=== PATIENT | female | born 1940 | race Caucasian/White ===

== ENCOUNTER → 2017-12-26 | Outpatient (CLI) | payer OTHER | END | disposition home or self-care (01) | LOC: KCIC DEXA 13:40 | DX: Z13.820 Encounter for screening for osteoporosis (principal); E11.9 Type 2 diabetes mellitus without complications; M85.88 Other specified disorders of bone density and structure, other site; Z78.0 Asymptomatic menopausal state | CPT/HCPCS: 77080 ==

== ENCOUNTER 2019-07-11 15:36 | Inpatient (IN) | payer MEDICARE, OTHER ==
[~2019-07-11] VITALS: Ht 170.2 cm; Wt 124.9 kg
[2019-07-11 15:50] LABS: BILIRUBIN,URINE NEGATIVE (NEG); COLOR,URINE YELLOW; NITRITE,URINE NEGATIVE (NEG); PH,URINE 6.5; PROTEIN,URINE 30 mg/dL (NEG-TRACE); UROBILINOGEN,URINE 0.2 mg/dL (0.2 mg/dL)
[2019-07-11 15:54] LABS: CLARITY,URINE CLEAR
[2019-07-11 15:55] LABS: BACTERIA,URINE FEW /HPF (0-FEW); RBC,URINE 0 /HPF (0-2); SQUAMOUS EPITHELIAL CELL,UR MOD /LPF; WBC,URINE OCC /HPF (0-4)
--- NOTE | 2019-07-11 15:58 | PHYS DOC ---
Adult General Chief Complaint Chief Complaint: MULTIPLE COMPLAINTS HPI HPI Patient is a 79 year old female who presents with shortness of breath has been ongoing for several months. The patient states that today she started developing incontinence, urinary frequency. The patient states she's had a the bathroom numerous times and continues to urinate on herself. Patient also has been having chest pain is mid-sternal nature, and headache. The patient denies any trauma. Review of Systems Review of Systems Constitutional: Denies fever or chills [] Eyes: Denies change in visual acuity, redness, or eye pain [] HENT: Denies nasal congestion or sore throat [] Respiratory: Reports shortness of breath [] Cardiovascular: No additional information not addressed in HPI [] GI: Denies abdominal pain, nausea, vomiting, bloody stools or diarrhea [] : Reports frequency and incontinence. Musculoskeletal: Denies back pain or joint pain [] Integument: Denies rash or skin lesions [] Neurologic: Reports headache, denies focal weakness or sensory changes [] Endocrine: Reports polyuria.] Complete systems were reviewed and found to be within normal limits, except as documented in this note. Current Medications Current Medications Current Medications Medications (Trade) Dose Ordered Sig/Wilmer Start Time Stop Time Status Last Admin Dose Admin Albuterol/ Ipratropium (Duoneb) 3 ml RTQID 07/11/19 20:00 Fentanyl Citrate (Fentanyl 2ml Vial) 50 mcg PRN Q1HR PRN 07/11/19 18:30 07/12/19 18:29 Info (CONTRAST GIVEN -- Rx MONITORING) 1 each PRN DAILY PRN 07/11/19 17:15 07/13/19 17:14 Iohexol (Omnipaque 300 Mg/ml) 60 ml 1X ONCE 07/11/19 17:15 07/11/19 17:16 DC Magnesium Sulfate 50 ml @ 25 mls/hr 1X STAT 07/11/19 16:36 07/11/19 18:35 07/11/19 17:22 25 MLS/HR Magnesium Sulfate/ Dextrose 100 ml @ 100 mls/hr 1X STAT 07/11/19 16:35 07/11/19 16:38 DC Ondansetron HCl (Zofran) 4 mg PRN Q8HRS PRN 07/11/19 18:30 07/12/19 18:29 Oseltamivir Phosphate (Tamiflu) 75 mg 1X ONCE 07/11/19 18:30 07/11/19 18:31 Sodium Chloride 1,000 ml @ 75 mls/hr [id number] 07/11/19 18:18 07/12/19 18:17 Allergies Allergies Allergies Coded Allergies Type Severity Reaction Last Updated Verified shellfish derived Allergy Severe N/V,THROAT FEELS FUNNY 07/11/19 Yes codeine Allergy Intermediate 07/11/19 Yes Physical Exam Physical Exam Constitutional: Well developed, well nourished, no acute distress, non-toxic appearance. [] HENT: Normocephalic, atraumatic, bilateral external ears normal, oropharynx moist, no oral exudates, nose normal. [] Eyes: PERRLA, EOMI, conjunctiva normal, no discharge. [] Neck: Normal range of motion, no tenderness, supple, no stridor. [] Cardiovascular:Heart rate regular rhythm, no murmur [] Lungs & Thorax: Bilateral breath sounds clear to auscultation [] Abdomen: Bowel sounds normal, soft, no tenderness, no masses, no pulsatile mass es. [] Skin: Warm, dry, no erythema, no rash. [] Back: Lumbar back tenderness, full rectal tone, no saddle anesthesia, no CVA tenderness. [] Extremities: No tenderness, no cyanosis, no clubbing, ROM intact, no edema. [] Neurologic: Alert and oriented X 3, normal motor function, normal sensory function, no focal deficits noted. [] Psychologic: Affect normal, judgement normal, mood normal. [] Current Patient Data Vital Signs Vital Signs Date Time Temp Pulse Resp B/P (MAP) Pulse Ox O2 Delivery O2 Flow Rate FiO2 07/11/19 17:19 98 150/92 (111) 94 Room Air 07/11/19 15:40 97.8 20 97.8 Lab Values Laboratory Tests Test 07/11/19 15:43 07/11/19 15:50 07/11/19 17:25 Urine Collection Type Unknown Urine Color Yellow Urine Clarity Clear Urine pH 6.5 Urine Specific [place] 1.010 Urine Protein 30 mg/dL (NEG-TRACE) Urine Glucose (UA) Negative mg/dL (NEG) Urine Ketones (Stick) Negative mg/dL (NEG) Urine Blood Negative (NEG) Urine Nitrite Negative (NEG) Urine Bilirubin Negative (NEG) Urine Urobilinogen Dipstick 0.2 mg/dL (0.2 mg/dL) Urine Leukocyte Esterase Negative (NEG) Urine RBC 0 /HPF (0-2) Urine WBC Occ /HPF (0-4) Urine Squamous Epithelial Cells Mod /LPF Urine Bacteria Few /HPF (0-FEW) Urine Opiates Screen Neg (NEG) Urine Methadone Screen Neg (NEG) Urine Barbiturates Neg (NEG) Urine Phencyclidine Screen Neg (NEG) Urine Amphetamine/Methamphetamine Neg (NEG) Urine Benzodiazepines Screen Neg (NEG) Urine Cocaine Screen Neg (NEG) Urine Cannabinoids Screen Neg (NEG) Ethyl Alcohol Level < 10 mg/dL (0-10) Urine Ethyl Alcohol Neg (NEG) White Blood Count 9.3 x10^3/uL (4.0-11.0) Red Blood Count 4.39 x10^6/uL (3.50-5.40) Hemoglobin 10.6 g/dL (12.0-15.5) L Hematocrit 33.4 % (36.0-47.0) L Mean Corpuscular Volume 76 fL (79-100) L Mean Corpuscular Hemoglobin 24 pg (25-35) L Mean Corpuscular Hemoglobin Concent 32 g/dL (31-37) Red Cell Distribution Width 17.0 % (11.5-14.5) H Platelet Count 282 x10^3/uL (140-400) Neutrophils (%) (Auto) 80 % (31-73) H Lymphocytes (%) (Auto) 4 % (24-48) L Monocytes (%) (Auto) 12 % (0-9) H Eosinophils (%) (Auto) 3 % (0-3) Basophils (%) (Auto) 1 % (0-3) Neutrophils # (Auto) 7.5 x10^3/uL (1.8-7.7) Lymphocytes # (Auto) 0.4 x10^3/uL (1.0-4.8) L Monocytes # (Auto) 1.1 x10^3/uL (0.0-1.1) Eosinophils # (Auto) 0.3 x10^3/uL (0.0-0.7) Basophils # (Auto) 0.1 x10^3/uL (0.0-0.2) Segmented Neutrophils % 80 % (35-66) H Band Neutrophils % 3 % (0-9) Lymphocytes % 6 % (24-48) L Monocytes % 10 % (0-10) Basophils % 1 % (0-3) Platelet Estimate Adequate (ADEQUATE) Hypochromasia Slight Poikilocytosis Slight Anisocytosis Slight Microcytosis Slight Ovalocytes Few D-Dimer (Yesi) 0.47 ug/mlFEU (0.00-0.50) Sodium Level 139 mmol/L (136-145) Potassium Level 4.7 mmol/L (3.5-5.1) Chloride Level 101 mmol/L (98-107) Carbon Dioxide Level 26 mmol/L (21-32) Anion Gap 12 (6-14) Blood Urea Nitrogen 21 mg/dL (7-20) H Creatinine 1.3 mg/dL (0.6-1.0) H Estimated GFR (Cockcroft-Gault) 39.7 BUN/Creatinine Ratio 16 (6-20) Glucose Level 120 mg/dL (70-99) H Calcium Level 10.2 mg/dL (8.5-10.1) H Magnesium Level 1.2 mg/dL (1.8-2.4) L Total Bilirubin 0.3 mg/dL (0.2-1.0) Aspartate Amino Transferase (AST) 24 U/L (15-37) Alanine Aminotransferase (ALT) 26 U/L (14-59) Alkaline Phosphatase 99 U/L (46-116) Troponin I Quantitative < 0.017 ng/mL (0.000-0.055) ER-Qwn-S-Type Natriuretic Peptide 681 pg/mL (0-449) H Total Protein 7.3 g/dL (6.4-8.2) Albumin 3.7 g/dL (3.4-5.0) Albumin/Globulin Ratio 1.0 (1.0-1.7) Procalcitonin < 0.10 ng/mL (0.00-0.10) Influenza Type A Antigen Positive (NEGATIVE) Influenza Type B Antigen Negative (NEGATIVE) Laboratory Tests 07/11/19 15:50 Laboratory Tests 07/11/19 15:50 EKG EKG EKG interpreted by Dr. Khan Sinus rate of 96.[] Radiology/Procedures Radiology/Procedures [facility] [address] [place] [address] IMAGING REPORT Signed PATIENT: ABDULLAHI MC ACCOUNT: [id number] : 1940 LOCATION: ER AGE: 79 SEX: F EXAM STATUS: REG ER ORD. PHYSICIAN: CORWIN NEWTON APRN REASON: headache PROCEDURE: CT HEAD WO CONTRAST Exam: CT head INDICATION: Headache TECHNIQUE: Sequential axial images through the head were obtained without the administration of IV contrast. Comparisons: None FINDINGS: No focal parenchymal lesion or hemorrhage is identified. There is no midline shift or sulcal effacement. Patchy hypodensity within the periventricular, subcortical and deep white matter bilaterally. No acute vascular territory infarction is identified. Abreu-white distinction is preserved. The ventricular system is within normal limits without compression hydrocephalus. The basal cisterns are well maintained. The visualized portions of the paranasal sinuses and mastoid air cells are well-pneumatized. No acute fractures. IMPRESSION: Findings a small vessel ischemic change, technically age indeterminate without prior imaging. Exposure: One or more of the following in the visualized dose reduction techniques were utilized for this examination: 1. Automated exposure control 2. Adjustment of the MA and/or KV according to patient size Use of iterative of reconstructive technique Electronically signed by: Abby Jaimes MD (07/11/2019 5:48 PM) [facility] DICTATED and SIGNED BY: ABBY JAIMES MD DATE: 07/11/19 1748 [][facility] [address] [place] [address] IMAGING REPORT Signed PATIENT: ABDULLAHI MC ACCOUNT: [id number] : 1940 LOCATION: ER AGE: 79 SEX: F EXAM STATUS: REG ER ORD. PHYSICIAN: CORWIN NEWTON APRN REASON: shortness of breath, cp PROCEDURE: PORTABLE CHEST 1V Single view chest dated 07/11/2019. Comparison made to 06/28/2015. Clinical indication: Shortness of breath. FINDINGS: Single upright portable exam performed. Heart and mediastinal contours are stable. There is perihilar thickening with prominent perihilar linear markings, unchanged. No consolidation or pleural effusion. No pneumothorax. IMPRESSION: 1. No evidence of focal pneumonia. 2. Prominent perihilar thickening could be related to acute or chronic bronchial inflammatory process. Electronically signed by: Corwin Ng MD (07/11/2019 4:32 PM) [facility] DICTATED and SIGNED BY: CORWIN NG MD DATE: 07/11/19 7013 Course & Med Decision Making Course & Med Decision Making Pertinent Labs and Imaging studies reviewed. (See chart for details) Will get CT head, Chest x-ray, labs (including d-dimer), and urine. Urinalysis is unremarkable. Labs shows Hgb: 10.6 Creatinine of 1.3 Magnesium of 1.2 Calcium of 10.2 BNP: 681 Influenza A positive. Chest x-ray shows acute or chronic bronchial inflammation. Patient continues to appear short of breath will call Dr. Vyas for admission. Discussed with Dr. Vyas who agrees to admission. Dragon Disclaimer Dragon Disclaimer This electronic medical record was generated, in whole or in part, using a voice recognition dictation system. Departure Departure Impression: Primary Impression: Influenza A Additional Impressions: Urinary incontinence Hypomagnesemia Shortness of breath Hypoxia Disposition: ADMITTED INPATIENT Admitting Physician: Steve Vyas Condition: STABLE Referrals: STEVE VYAS MD (PCP) Problem Qualifiers Additional Impressions: Urinary incontinence Urinary Incontinence type: unspecified incontinence Qualified Codes: R32 - Unspecified urinary incontinence CORWIN NEWTON APRN Jul 11, 2019 15:58
[2019-07-11 16:05] LABS: BASO # 0.1 x10^3/uL (0.0-0.2); BASO % 1 % (0-3); EOS # 0.3 x10^3/uL (0.0-0.7); EOS % 3 % (0-3); HEMATOCRIT 33.4 % (36.0-47.0); HEMOGLOBIN 10.6 g/dL (12.0-15.5); LYMPH # 0.4 x10^3/uL (1.0-4.8); LYMPH % 4 % (24-48); MEAN CORPUSCULAR HEMOGLOBIN 24 pg (25-35); MEAN CORPUSCULAR HGB CONC 32 g/dL (31-37); MEAN CORPUSCULAR VOLUME 76 fL (79-100); MONO # 1.1 x10^3/uL (0.0-1.1); MONO % 12 % (0-9); NEUT # 7.5 x10^3/uL (1.8-7.7); NEUT % 80 % (31-73); PLATELET COUNT 282 x10^3/uL (140-400); RED BLOOD COUNT 4.39 x10^6/uL (3.50-5.40); WHITE BLOOD COUNT 9.3 x10^3/uL (4.0-11.0)
[2019-07-11 16:19] LABS: CALCIUM 10.2 mg/dL (8.5-10.1); CREATININE 1.3 mg/dL (0.6-1.0); GFR 39.7; POTASSIUM 4.7 mmol/L (3.5-5.1)
[2019-07-11 16:23] LABS: % BANDS 3 % (0-9); % BASOS 1 % (0-3); % LYMPHS 6 % (24-48); % MONOS 10 % (0-10); % SEGS 80 % (35-66); PLT ESTIMATE ADEQUATE (ADEQUATE)
[2019-07-11 16:24] LABS: ALBUMIN 3.7 g/dL (3.4-5.0); ANISOCYTOSIS SLIGHT; HYPOCHROMIA SLIGHT; MAGNESIUM 1.2 mg/dL (1.8-2.4); MICROCYTOSIS SLIGHT; OVALOCYTES FEW; POIKILOCYTOSIS SLIGHT; TOTAL BILIRUBIN 0.3 mg/dL (0.2-1.0); TOTAL PROTEIN 7.3 g/dL (6.4-8.2)
[2019-07-11] MEDS ORDERED: IPRATRPIUM/ALBUTEROL 0.5/2.5MG 3 ML NEBU. NEB STA (16:26)
[2019-07-11] MEDS ORDERED: MAGNESIUM SULFATE 1GM 100 ML IV STA (16:35)
--- NOTE | 2019-07-11 16:35 | RAD ---
Single view chest dated 07/11/2019. Comparison made to 06/28/2015. Clinical indication: Shortness of breath. FINDINGS: Single upright portable exam performed. Heart and mediastinal contours are stable. There is perihilar thickening with prominent perihilar linear markings, unchanged. No consolidation or pleural effusion. No pneumothorax. IMPRESSION: 1. No evidence of focal pneumonia. 2. Prominent perihilar thickening could be related to acute or chronic bronchial inflammatory process. Electronically signed by: Corwin Ng MD (07/11/2019 4:32 PM) [facility]
[2019-07-11] MEDS ORDERED: MAGNESIUM SULFATE 2GM 50 ML IV STA (16:36)
[2019-07-11 17:02] LABS: BARBITURATES NEG (NEG); BENZODIAZEPINES NEG (NEG); CANNABINOIDS NEG (NEG); COCAINE NEG (NEG); METHADONE NEG (NEG); OPIATES NEG (NEG); PHENCYCLIDINE NEG (NEG)
[2019-07-11 17:03] LABS: AMPHETAMINE/METHAMPHETAMINE NEG (NEG)
[2019-07-11] MEDS ORDERED: IOHEXOL 300 MG/ML 100ML VIAL. IV ONE (17:15)
[2019-07-11] MEDS ORDERED: CONTRAST GIVEN. MC PRN (17:15)
[2019-07-11 17:50] LABS: INFLUENZA A PATIENT POSITIVE (NEGATIVE); INFLUENZA B PATIENT NEGATIVE (NEGATIVE)
--- NOTE | 2019-07-11 17:50 | RAD ---
Exam: CT head INDICATION: Headache TECHNIQUE: Sequential axial images through the head were obtained without the administration of IV contrast. Comparisons: None FINDINGS: No focal parenchymal lesion or hemorrhage is identified. There is no midline shift or sulcal effacement. Patchy hypodensity within the periventricular, subcortical and deep white matter bilaterally. No acute vascular territory infarction is identified. Abreu-white distinction is preserved. The ventricular system is within normal limits without compression hydrocephalus. The basal cisterns are well maintained. The visualized portions of the paranasal sinuses and mastoid air cells are well-pneumatized. No acute fractures. IMPRESSION: Findings a small vessel ischemic change, technically age indeterminate without prior imaging. Exposure: One or more of the following in the visualized dose reduction techniques were utilized for this examination: 1. Automated exposure control 2. Adjustment of the MA and/or KV according to patient size Use of iterative of reconstructive technique Electronically signed by: Abby Keenan MD (07/11/2019 5:48 PM) [facility]
--- NOTE | 2019-07-11 18:07 | RAD ---
Exam: CT abdomen and pelvis without contrast INDICATION: Urinary incontinence TECHNIQUE: Sequential axial images through the abdomen and pelvis obtained without IV contrast. Sagittal and coronal reformatted images were reconstructed from the axial data and reviewed. Comparisons: Urinary incontinence FINDINGS: Heart size is normal. No pericardial effusion. Moderate coronary artery calcium lesions are noted. Visualized lung bases are clear. No pleural effusion. Evaluation of solid organs limited secondary to noncontrast technique. Liver, spleen, pancreas and adrenals are unremarkable. Gallbladder is absent. No perinephric inflammation or hydronephrosis. No renal or ureteral calculi are identified. There is a 1.7 cm hypoattenuating cystic lesion at the lower pole of the left kidney incompletely characterized on noncontrast exam. Bladder is distended and appears thin-walled. Uterus is nonenlarged. No abnormal adnexal mass. Large and small bowel are unremarkable. No obstruction. No free intra-abdominal air or fluid. Abdominal aorta has a normal course and caliber. No enlarged intra-abdominal lymph nodes are identified. No suspicious osseous lesions or acute fractures. IMPRESSION: 1. No renal or ureteral calculi. No evidence for obstructive uropathy. 2. A 1.7 cm hypoattenuating cystic lesion at the lower pole of the left kidney incompletely characterized on noncontrast study. Further evaluation with nonemergent renal protocol CT or MRI is recommended. Exposure: One or more of the following in the visualized dose reduction techniques were utilized for this examination: 1. Automated exposure control 2. Adjustment of the MA and/or KV according to patient size 3. Use of iterative of reconstructive technique Electronically signed by: Abby Keenan MD (07/11/2019 6:04 PM) [facility]
[2019-07-11] MEDS ORDERED: ONDANSETRON PF 4 MG/2 ML VIAL. IV PRN (18:30)
[2019-07-11] MEDS ORDERED: fentaNYL PF VIAL 100 MCG/2 ML VIAL IV PRN (18:30)
[2019-07-11] MEDS ORDERED: OSELTAMIVIR 75 MG CAPSULE PO ONE (18:30)
[2019-07-11 19:40] VITALS: BP 139/82
[2019-07-11] MEDS ORDERED: ACETAMINOPHEN 325 MG TABLET. PO ONE (19:45)
[2019-07-11] MEDS ORDERED: IPRATRPIUM/ALBUTEROL 0.5/2.5MG 3 ML NEBU. NEB SCH (20:00)
--- NOTE | 2019-07-11 20:00 | NUR ---
The patient, ABDULLAHI MC, 79 y/o, F admitted by STEVE VYAS MD, was given written information regarding hospital policies, unit procedures and contact persons. Patient arrived to room via wheelchair, assisted by ED staff member. Valuables were checked and noted. Patient's daughter at bedside. Patient is currently laying in bed watching TV and visiting with daughter. Patient states no needs at this time. This RN will continue to monitor this patient.
[2019-07-11] MEDS: IV NORMAL SALINE 1000ML BAG 1,000 ML IV SCH (21:03)
[2019-07-11 23:00] VITALS: BP 128/64
[2019-07-11] MEDS ORDERED: METF500T16 PO (23:59)
[2019-07-11] MEDS ORDERED: NPH,100V5 SQ (23:59)
[2019-07-11] MEDS ORDERED: LORA10TA3 PO (23:59)
[2019-07-11] MEDS ORDERED: ALBU2.5V8 IH (23:59)
[2019-07-11] MEDS ORDERED: CHOL200059 PO (23:59)
[2019-07-11] MEDS ORDERED: IBUP-1027 PO (23:59)
[2019-07-11] MEDS ORDERED: ATOR10TA PO (23:59)
[2019-07-11] MEDS ORDERED: OMEP20TA8 PO (23:59)
[2019-07-11] MEDS ORDERED: HYDR12.575 PO (23:59)
[2019-07-11] MEDS ORDERED: ACET500T68 PO (23:59)
[2019-07-11] MEDS ORDERED: MULT-245 PO (23:59)
[2019-07-12 03:00] VITALS: BP 140/75
[2019-07-12] MEDS ORDERED: ACETAMINOPHEN 325 MG TABLET. PO PRN (03:15)
[2019-07-12 04:10] LABS: BASO # 0.1 x10^3/uL (0.0-0.2); BASO % 1 % (0-3); EOS % 1 % (0-3); HEMATOCRIT 29.9 % (36.0-47.0); HEMOGLOBIN 9.6 g/dL (12.0-15.5); LYMPH # 0.5 x10^3/uL (1.0-4.8); LYMPH % 8 % (24-48); MEAN CORPUSCULAR HEMOGLOBIN 25 pg (25-35); MEAN CORPUSCULAR HGB CONC 32 g/dL (31-37); MEAN CORPUSCULAR VOLUME 76 fL (79-100); MONO # 1.3 x10^3/uL (0.0-1.1); MONO % 19 % (0-9); NEUT # 4.9 x10^3/uL (1.8-7.7); NEUT % 72 % (31-73); PLATELET COUNT 247 x10^3/uL (140-400); RED BLOOD COUNT 3.92 x10^6/uL (3.50-5.40); RED CELL DISTRIBUTION WIDTH 16.8 % (11.5-14.5); WHITE BLOOD COUNT 6.8 x10^3/uL (4.0-11.0)
[2019-07-12 05:06] LABS: ALBUMIN 3.3 g/dL (3.4-5.0); CALCIUM 10.2 mg/dL (8.5-10.1); CREATININE 1.3 mg/dL (0.6-1.0); GFR 39.7; MAGNESIUM 1.6 mg/dL (1.8-2.4); POTASSIUM 4.9 mmol/L (3.5-5.1); TOTAL BILIRUBIN 0.3 mg/dL (0.2-1.0); TOTAL PROTEIN 6.5 g/dL (6.4-8.2)
--- NOTE | 2019-07-12 06:15 | EKG ---
[facility] [address] [place] [address] Test Date: 2019-07-11 Test Time: 15:58:49 Pat Name: ABDULLAHI MC Department: Room: Gender: F [employer]: : 1940 Requested By: KAREN NEWTON Order Number: [id number] Reading MD: Measurements Intervals [place] Rate: 95 P: 59 ID: [id number] QRS: 24 QRSD: 78 T: 20 QT: 320 QTc: 405 Interpretive Statements SINUS RHYTHM NORMAL ECG No previous ECG available for comparison
[2019-07-12 07:00] VITALS: BP 156/103
[2019-07-12] MEDS: IV NORMAL SALINE 1000ML BAG 1,000 ML IV SCH (07:50)
[2019-07-12] MEDS ORDERED: IBUPROFEN 400 MG TABLET. PO PRN (08:15)
--- NOTE | 2019-07-12 08:29 | PDOC ---
Provider Note Provider Note [id number] STEVE VYAS MD Jul 12, 2019 08:29
[2019-07-12] MEDS: IPRATRPIUM/ALBUTEROL 0.5/2.5MG 3 ML NEBU. NEB PRN ×3 (08:51→15:41)
[2019-07-12] MEDS ORDERED: hydroCHLOROthiazide 12.5 MG CAPSULE PO SCH (09:00)
[2019-07-12] MEDS: ATORVASTATIN CALCIUM 10 MG TABLET. PO SCH (09:22)
[2019-07-12] MEDS: OSELTAMIVIR 30 MG CAPSULE PO SCH ×2 (09:22→20:58)
[2019-07-12] MEDS: PANTOPRAZOLE 40 MG TABLET.DR. PO SCH (09:22)
[2019-07-12] MEDS: LEVOTHYROXINE 100 MCG TABLET PO SCH (09:22)
[2019-07-12] MEDS: INSULIN GLARGINE SYRINGE. SQ SCH (09:26)
--- NOTE | 2019-07-12 09:30 | NUR ---
IP: Pt is Influenza + requiring droplet precautions for 7 days and 24 hours without a fever, whichever is longest.
[2019-07-12] MEDS ORDERED: VERAPAMIL SR 180 MG TABLET.ER. PO SCH (10:00)
[2019-07-12] MEDS: hydroCHLOROthiazide 25 MG TABLET PO SCH (10:03)
[2019-07-12] MEDS: SPIRONOLACTONE 25 MG TABLET PO SCH (10:04)
[2019-07-12] MEDS: ACETAMINOPHEN 500 MG TABLET PO PRN ×2 (10:07→17:12)
[2019-07-12 10:49] VITALS: BP 148/92
--- NOTE | 2019-07-12 11:52 | NUR ---
SW following. Discussed with RN, pt is from home alone, gets around well. RN advised no SW needs at this time.
[2019-07-12 15:00] VITALS: BP 152/95
[2019-07-12 19:00] VITALS: BP 156/61
[2019-07-12 23:00] VITALS: BP 136/80
[2019-07-13 03:00] VITALS: BP 146/85
[2019-07-13 04:49] LABS: HEMATOCRIT 29.5 % (36.0-47.0); HEMOGLOBIN 9.5 g/dL (12.0-15.5); RED BLOOD COUNT 3.88 x10^6/uL (3.50-5.40); RED CELL DISTRIBUTION WIDTH 17.3 % (11.5-14.5); WHITE BLOOD COUNT 5.9 x10^3/uL (4.0-11.0)
[2019-07-13] MEDS: LEVOTHYROXINE 100 MCG TABLET PO SCH (06:43)
[2019-07-13 07:00] VITALS: BP 136/67
[2019-07-13] MEDS: IPRATRPIUM/ALBUTEROL 0.5/2.5MG 3 ML NEBU. NEB PRN (07:15)
--- NOTE | 2019-07-13 08:18 | PDOC ---
Provider Note Provider Note [id number] STEVE VYAS MD Jul 13, 2019 08:18
[2019-07-13] MEDS: hydroCHLOROthiazide 25 MG TABLET PO SCH (08:48)
[2019-07-13] MEDS: OSELTAMIVIR 30 MG CAPSULE PO SCH (08:48)
[2019-07-13] MEDS: ATORVASTATIN CALCIUM 10 MG TABLET. PO SCH (08:48)
[2019-07-13] MEDS: PANTOPRAZOLE 40 MG TABLET.DR. PO SCH (08:48)
[2019-07-13] MEDS: SPIRONOLACTONE 25 MG TABLET PO SCH (08:49)
[2019-07-13] MEDS: INSULIN GLARGINE SYRINGE. SQ SCH (08:56)
--- NOTE | 2019-07-13 09:18 | HP ---
ADMIT DATE: 07/11/2019 CHIEF COMPLAINT: Weakness and fever. HISTORY OF PRESENT ILLNESS: A 79-year-old white female, who came in with 1-day weakness and polyuria and general fatigue. She was found to have a positive influenza A test, and CT scan of the head and abdomen was normal, and chest x-ray was clear. She was started on Tamiflu and IV fluids and actually feels better at this time. She was given IV magnesium sulfate for a low magnesium level as well and her weakness feels generally better. PAST HISTORY: Multiple meds listed per the chart. Last A1c 6.2 two months ago. She is on Novolin N insulin. SHE IS ALLERGIC TO FLU VACCINE, CODEINE. No other serious medical problems known. SOCIAL HISTORY: She is single, not employed, nondrinker, nonsmoker. FAMILY HISTORY: Unremarkable. REVIEW OF SYSTEMS: No other complaints. OBJECTIVE: ENT: All within normal limits. NECK: No masses, nodes or bruits. LUNGS: Clear, without tachypnea or wheezing. CARDIOVASCULAR: Regular rate. No tachycardia or murmur. BREASTS: Not examined. ABDOMEN: Benign and nontender. EXTREMITIES: Good pedal and radial pulses. No edema. No joint or skin lesions. NEUROLOGIC: Physiologic, alert, appropriate, responsive. ASSESSMENT: 1. Influenza A with transient hypoxia, seems better now after Tamiflu. 2. Hypomagnesemia, improved with magnesium sulfate. 3. Normocytic anemia, etiology and duration unknown. 4. Type 2 insulin-dependent diabetes mellitus, well controlled. PLAN: Continue Tamiflu. We will discontinue IV fluids. Recheck her hemoglobin and follow that for serial decline and possible discharge on 07/13 if continues to be improved on Tamiflu. STEVE VYAS MD DR: KIKI/ramsey JOB#: [id number] / [id number]
--- NOTE | 2019-07-13 09:30 | DS ---
DATE OF DISCHARGE: 07/12/2019 HOSPITAL SUMMARY: A 79-year-old white female admitted with type A flu positive per test and also a mild microcytic anemia, hemoglobin of 9.5 with the MCV of 76. White count and platelet count was normal. Chemistry profile showed a GFR of 40, which is about stable for her, procalcitonin levels were low. Urine drug screen negative. Urinalysis was clear and chest x-ray showed no acute change. CT of the abdomen and pelvis showed a 1.7 cm cystic lesion in the left lower kidney. No worrisome masses were seen and the head CT was clear as well. She was treated with Tamiflu, started feeling better and her mild hypoxia resolved quickly. Low magnesium was treated in the ER with improvement in that level. She is feeling better and able to be discharged at this time to outpatient care. FINAL DIAGNOSES: 1. Influenza type A. 2. Microcytic anemia, etiology undetermined. 3. Chronic kidney disease 3, stable. OPERATIONS, PROCEDURES, COMPLICATIONS, CONSULTATIONS: None. DISPOSITION: Three more days of Tamiflu 75 mg twice a day. We will see her in the office in about 1 week to follow up on the microcytic anemia with appropriate iron studies and evaluation that may or may not need to include EGD and colonoscopy. Her last colonoscopy being in 2011. She has been on full dose ibuprofen and had abdominal pain 2 months ago, but that has improved, but the anemia duration and etiology is unknown at this time. STEVE VYAS MD DR: KIKI/ramsey JOB#: [id number] / [id number]
--- NOTE | 2019-07-13 10:02 | NUR ---
pt discharged home with daughter via private vehicle. meds and follow up reviewed. tamiflu called to pref pharm by Dr. Nettles. Pt stable upon DC. IV removed, cath intact.
[2019-07-13] MEDS ORDERED: metFORMIN 500 MG TABLET PO SCH (18:00)
== END 2019-07-13 10:12 | disposition home or self-care (01) | DRG 195 ==
LOC: ER 15:36 → 5 SOUTH 18:35
PROVIDERS: ADMIT Family Medicine; ATTEND Family Medicine
DX: J10.1 Influenza due to other identified influenza virus with other respiratory manifestations (principal); D50.9 Iron deficiency anemia, unspecified; E11.22 Type 2 diabetes mellitus with diabetic chronic kidney disease; E83.42 Hypomagnesemia; N18.3 Chronic kidney disease, stage 3 (moderate); R09.02 Hypoxemia; Z79.4 Long term (current) use of insulin; Z88.7 Allergy status to serum and vaccine; Z88.8 Allergy status to other drugs, medicaments and biological substances; Z91.013 Allergy to seafood
CPT/HCPCS: 36415; 70450; 71045; 74176; 80053; 80307; 81001; 82962; 83735; 83880; 84145; 84484; 85007; 85025; 85027; 85379; 87804; 93005; 94640; 94760; G0480; J1815; J3475; J7030; J7620; G0378

== ENCOUNTER → 2020-01-07 | Outpatient (CLI) | payer MEDICARE ==
[~2020-01-07] MED LIST: ACET500T68 PO; ALBU2.5V8 IH; ATOR10TA PO; CHOL200059 PO; HYDR12.575 PO; IBUP-1027 PO; LORA10TA3 PO; METF500T16 PO; MULT-245 PO; NPH,100V5 SQ; OMEP20TA8 PO
--- NOTE | 2020-01-07 15:31 | CARD ---
MR#: [id number] Date of Study: 01/07/2020 Ordering Physician: STEVE VYAS, Referring Physician: STEVE VYAS Tech: Linda Pat RDCS APPROVED REPORT EXAM: Two-dimensional and M-mode echocardiogram with Doppler and color Doppler. Other Information Quality : Good INDICATION Dyspnea on Exertion 2D DIMENSIONS RVDd3.2 (2.9-3.5cm)Left Atrium(2D)4.4 (1.6-4.0cm) IVSd1.1 (0.7-1.1cm)Aortic Root(2D)3.1 (2.0-3.7cm) LVDd4.8 (3.9-5.9cm)LVOT Diameter2.1 (1.8-2.4cm) PWd1.1 (0.7-1.1cm)LVDs3.4 (2.5-4.0cm) FS (%) 28.9 %SV59.7 ml LVEF(%)55.5 (>50%) Aortic Valve AoV Peak [place]ley.170.5cm/sAoV VTI34.0cm AO Peak GR.11.6mmHgLVOT Peak [place].131.8cm/s LVOT VTI 28.27cmAO Mean GR.7mmHg JACQUIE (VMAX)2.76qm6SYH (VTI)2.95cm2 Mitral Valve MV E Hlhtknhc826.4cm/sMV DECEL ZMOO792co MV A Runjersm178.2cm/sMV YTW10cm E/A Ratio0.9MVA (PHT)4.22cm2 TDI E/Lateral E'12.3E/Medial E'19.5 Tricuspid Valve TR P. Hdtxcllk949aw/sRAP UGSFWAOF1snFv TR Peak Gr.21xlKaXADJ44vcWs Pulmonary Vein S1 Gbubqkdy24.3cm/sD2 Nyfrqyga53.4cm/s LEFT VENTRICLE The left ventricle is normal size. There is normal left ventricular wall thickness. The left ventricu lar systolic function is normal. The Ejection Fraction is 55-60%. There is normal LV segmental wall m otion. Transmitral Doppler flow pattern is Grade I-abnormal relaxation pattern. RIGHT VENTRICLE The right ventricle is normal size. The right ventricular systolic function is normal. ATRIA The left atrium is mildly dilated. The right atrium size is normal. The interatrial septum is intact with no evidence for an atrial septal defect or patent foramen ovale as noted on 2-D or Doppler imagi ng. AORTIC VALVE The aortic valve is normal in structure and function. Doppler and Color Flow revealed no significant aortic regurgitation. There is no significant aortic valvular stenosis. MITRAL VALVE The mitral valve is calcified but opens well. There is no evidence of mitral valve prolapse. There is no mitral valve stenosis. Doppler and Color-flow revealed trace mitral regurgitation. TRICUSPID VALVE The tricuspid valve is normal in structure and function. Doppler and Color Flow revealed trace tricus pid regurgitation. There is mild pulmonary hypertension. The PA pressure was estimated at 39 mmHg. Th ere is no tricuspid valve stenosis. PULMONIC VALVE The pulmonic valve is not well visualized. Doppler and Color Flow revealed trace pulmonic valvular re gurgitation. There is no pulmonic valvular stenosis. GREAT VESSELS The aortic root is normal in size. The ascending aorta is mildly dilated at 3.7 cm. The IVC is normal in size and collapses >50% with inspiration. PERICARDIAL EFFUSION There is no evidence of significant pericardial effusion. Critical Notification Critical Value: No <Conclusion> The left ventricular systolic function is normal. The Ejection Fraction is 55-60%. There is normal LV segmental wall motion. Transmitral Doppler flow pattern is Grade I-abnormal relaxation pattern. Trace mitral regurgitation. Trace tricuspid regurgitation. The PA pressure was estimated at 39 mmHg. There is no evidence of significant pericardial effusion. Signed by : Ted Preciado, Electronically Approved : 01/07/2020 15:31:02
== END | disposition home or self-care (01) ==
LOC: ECHO 13:36
PROVIDERS: ATTEND Family Medicine
DX: I34.8 Other nonrheumatic mitral valve disorders (principal); I27.20 Pulmonary hypertension, unspecified
CPT/HCPCS: 93306

== ENCOUNTER 2021-04-21 11:59 | Emergency (ER) | payer MEDICARE ==
[~2021-04-21] VITALS: Ht 170.2 cm; Wt 135.0 kg
[2021-04-21 13:15] VITALS: BP 167/78
--- NOTE | 2021-04-21 13:44 | RAD ---
EXAM: Right knee, 3 views. HISTORY: Pain. COMPARISON: None. FINDINGS: 3 views of the right knee are obtained. There is medial and patellofemoral compartment pred ominant joint space narrowing and tricompartmental spurring. There is a small joint effusion. There i s no fracture, dislocation or subluxation. 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 Electronically signed by: Jacque Burgess MD (04/21/2021 1:42 PM) [id number]
[2021-04-21] MEDS ORDERED: LIDO1ADH78 TP (13:53)
--- NOTE | 2021-04-21 13:54 | PHYS DOC ---
Past Medical History Past Medical History: Diabetes-Type II, GERD, High Cholesterol, Hypertension Past Surgical History: Cholecystectomy, Knee Replacement Smoking Status: Former Smoker Alcohol Use: Rarely Drug Use: None General Adult EDM: Chief Complaint: KNEE INJURY HPI: HPI: 81-year-old female past medical history of diabetes presents to the ED with her sister, (patient consents to his/her/their knowledge and involvement in pts' medical care), complains of left medial ankle right knee pain after patient was rolled her right ankle 2 weeks ago, no relief with 1% Lidoderm patches. Patient states she feels as if something snapped. Reports she has tricompartmental osteoarthritis of the right knee-has had a prior x-ray of the right knee and states this pain is new. Has not seen orthopedic surgery for her right knee pain. Has any recent antibiotics or ligamentous use. Review of Systems: Review of Systems: Constitutional: Denies fever or chills. [] Eyes: Denies change in visual acuity. [] HENT: Denies nasal congestion or sore throat. [] Respiratory: Denies cough or shortness of breath. [] Cardiovascular: Denies chest pain or edema. [] GI: Denies nausea or vomiting : Denies incontinence or saddle anesthesia Musculoskeletal: Denies back pain or joint swelling/warmth Integument: Denies rash or diaphoresis Neurologic: Denies headache, focal weakness or sensory changes. [] Endocrine: Denies polyuria or polydipsia. [] Lymphatic: Denies swollen glands. [] Psychiatric: Denies depression or anxiety. [] Heart Score: C/O Chest Pain: No Risk Factors: Risk Factors: DM, Current or recent (<one month) smoker, HTN, HLP, family history of CAD, obesity. Risk Scores: Score 0 - 3: 2.5% MACE over next 6 weeks - Discharge Home Score 4 - 6: 20.3% MACE over next 6 weeks - Admit for Clinical Observation Score 7 - 10: 72.7% MACE over next 6 weeks - Early Invasive Strategies Allergies: Allergies: Allergies Coded Allergies Type Severity Reaction Last Updated Verified Influenza Virus Vaccines Allergy Severe 07/12/19 Yes shellfish derived Allergy Severe N/V,THROAT FEELS FUNNY 07/11/19 Yes codeine Allergy Intermediate 07/11/19 Yes Physical Exam: PE: Constitutional: Well developed, well nourished, no acute distress, non-toxic appearance, obese HENT: Normocephalic, atraumatic, Eyes: EOMI, conjunctiva normal, no discharge. Neck: Normal range of motion, supple, Cardiovascular: S1/2 present, regular rhythm Lungs & Thorax: Speaking in full sentences, bilateral equal chest rise, no tachypnea or increased work of breathing Skin: Warm, dry, no erythema, no rash. [] Extremities: Bilateral pedal edema with equal DP/PT pulses, L5-S1 sensation intact, complains of pain over medial and posterior aspect of right knee, cannot appreciate any ligamentous laxity with Nataliya/reverse Nataliya/varus/valgus testing, no joint warmth/rash/erythema-prefers right knee in extension position, pain worsens with right knee flexion Neurologic: Alert and oriented X 3, normal motor function, normal sensory function, no focal deficits noted. [] Psychologic: Affect normal, judgement normal, mood normal. [] Current Patient Data: Vital Signs: Vital Signs Date Time Temp Pulse Resp B/P (MAP) Pulse Ox O2 Delivery O2 Flow Rate FiO2 04/21/21 13:15 98.5 59 16 167/78 (107) 96 Room Air 98.5 EKG: EKG: [] Radiology/Procedures: Radiology/Procedures: []IMAGING REPORT Signed PATIENT: ABDULLAHI MC ACCOUNT: [id number] : 1940 LOCATION: ER AGE: 81 SEX: F EXAM STATUS: REG ER ORD. PHYSICIAN: CHETNA SOTO DO REASON: medial right knee pain PROCEDURE: KNEE RIGHT 3V EXAM: Right knee, 3 views. HISTORY: Pain. COMPARISON: None. FINDINGS: 3 views of the right knee are obtained. There is medial and patellofemoral compartment predominant joint space narrowing and tricompartmental spurring. There is a small joint effusion. There is no fracture, dislocation or subluxation. IMPRESSION: Mild to moderate tricompartment osteoarthritis of the right knee with small joint effusion. Electronically signed by: Jacque Carrillo MD (04/21/2021 1:42 PM) [id number] DICTATED and SIGNED BY: JACQUE CARRILLO MD DATE: 04/21/21 [id number] 0 Course & Med Decision Making: Course & Med Decision Making Pertinent Labs and Imaging studies reviewed. (See chart for details) Concern for right knee osteoarthritis with small joint effusion, cannot exclude ligamentous instability. Knee brace applied. Patient is using a walker to ambulate. Recommended rice instructions with [id number] analgesia. Will discharge home with strict ED return precautions were given for repeat injury, severe pain, neurologic deficits or skin color changes. Encouraged urgent outpatient follow-up with PMD and orthopedic surgery for definitive management, will likely benefit from MRI. Life-threatening processes were considered but are low suspicion at this time, given history, physical exam and ED workup. Pt was educated on all prescription medications and adverse effects. All patient's questions were answered and pt was stable at time of discharge. Life/limb-threatening differential includes but is not limited to, avascular necrosis, septic arthritis, malignancy, compartment syndrome, fracture/ligamentous injury/overuse, decompression sickness, seronegative spondyloarthropathies, trauma including dislocation/fracture, Lyme disease, lupus, arthritis differentials, gout/pseudogout or decompression sickness. I have spoken with the patient and/or caregivers. I explained the patient's condition, diagnoses and treatment plan based on the information available to me at this time. I have answered the patient and/or caregiver's questions and addressed any concerns. The patient and/or caregivers have a good understanding of patient's diagnosis, condition and treatment plan as can be expected at this point. Vital signs have been stable. Patient's condition is stable and appropriate for discharge from the emergency department. Patient will pursue further outpatient evaluation with primary care physician or other designated or consulting physician as outlined in the discharge instructions. The patient and/or caregivers are agreeable to this plan of care and follow-up instructions have been explained in detail. The patient and/or caregivers have received these instructions in written form and have expressed an understanding of the discharge instructions. The patient and/or caregivers are aware that any significant change of condition or worsening of symptoms should prompt immediate return to this or the closest emergency department or call to 911. Kavita Disclaimer: Kavita Disclaimer: This electronic medical record was generated, in whole or in part, using a voice recognition dictation system. Departure Departure Impression: Primary Impression: Arthritis of right knee Additional Impression: Knee effusion, right Disposition: HOME / SELF CARE / HOMELESS Condition: STABLE Referrals: STEVE VYAS MD (PCP) Follow-up with your primary care physician in 24 to 48 hours OR FOLLOW UP WITH FAMILY MEDICINE: [address], [address] [place] [address] Patient Instructions: Knee Pain, Osteoarthritis, RICE - Routine Care for Injuries Additional Instructions: FOLLOW UP WITH ORTHOPEDICS: FOR DEFINITIVE MANAGEMENT of right knee pain in 1-2 weeks Orthopaedic Surgery [address], [address] [place] [address] EMERGENCY DEPARTMENT GENERAL DISCHARGE INSTRUCTIONS Thank you for coming to [facility] Emergency Department (ED) today and trusting us with you care. We trust that you had a positive experience in our Emergency Department. If you wish to speak to the department management, you may call the Director at [phone]. YOUR FOLLOW UP INSTRUCTIONS ARE FOLLOWS: 1. Do you have a private Doctor? If you do not have a private doctor, please ask for a resource list of physicians or clinics that may be able to assist you with follow up care. 2. The Emergency Physicain has interpreted your x-rays. The X-Ray specialist will also review them. If there is a change in the findings, you will be notified in 48 hours when at all possible. 3. A lab test or culture has been done, your results will be reviewed and you will be notified if you need a change in treatment. ADDITIONAL INSTRUCTIONS AND INFORMATION: 1. Your care today has been supervised by a physician who is specially trained in emergency care. Many problems require more than one evaluation for a complete diagnosis and treatment. We recommend that you schedule your follow up appointment as recommended to ensure complete treatment of you illness or injury. If you are unable to obtain follow up care and continue to have a problem, or if your condition worsens, we recommend that you return to the ED. 2. We are not able to safely determine your condition over the phone nor are we able to give sound medical advice over the phone. For these safety reasons, if you call for medical advice we will ask you to come to the ED for further evaluation. 3. If you have any questions regarding these discharge instructions please call the ED at [phone]. SAFETY INFORMATION: In the interest of safety, wellness, and injury prevention; we encourage you to wear your sealbelt, if you smoke; quite smoking, and we encourage family to use a protective helmet for bicycling and other sporting events that present an increased risk for head injury. IF YOUR SYMPTOMS WORSEN OR NEW SYMPTOMS DEVELOP, OR YOU HAVE CONCERNS ABOUT YOUR CONDITION; OR IF YOUR CONDITION WORSENS WHILE YOU ARE WAITING FOR YOUR FOLLOW UP APPOINTMENT; EITHER CONTACT YOUR PRIMARY CARE DOCTOR, THE PHYSICIAN WHOSE NAME AND NUMBER YOU WERE GIVEN, OR RETURN TO THE ED IMMEDIATELY. Scripts Lidocaine (Vianney Nawaf) 1 Each Adh..patch 1 EACH TP DAILY for 5 Days, #5 PATCH Apply 1 patch for 12 hours, remove for another 12 hours. May repeat, 1 patch per day as instructed above. Prov: CHETNA SOTO DO 04/21/21 CHETNA SOTO DO Apr 21, 2021 13:54
== END 2021-04-21 14:13 | disposition home or self-care (01) ==
LOC: ER 11:59
DX: M17.11 Unilateral primary osteoarthritis, right knee (principal); M25.461 Effusion, right knee; E11.9 Type 2 diabetes mellitus without complications; K21.9 Gastro-esophageal reflux disease without esophagitis; E78.00 Pure hypercholesterolemia, unspecified; I10 Essential (primary) hypertension; Z88.7 Allergy status to serum and vaccine; Z88.5 Allergy status to narcotic agent; Z91.013 Allergy to seafood
CPT/HCPCS: 29505; 73562; 99283